=== PATIENT | male | born 1940 | race Caucasian/White ===

== ENCOUNTER 2019-09-25 19:13 | Emergency (ER) | payer MEDICARE, OTHER ==
[2019-09-25 19:27] VITALS: TEMP 97.9
--- NOTE | 2019-09-25 20:01 | ED ---
Altered Mental Status HPI - General Chief Complaint: Altered Mental Status Stated Complaint: Altered mental status Source: patient, family, RN notes reviewed, old records reviewed Mode of arrival: ambulatory Limitations: no limitations - History of Present Illness Initial Comments: There is a 79-year-old male medical history of heart disease coming in with altered mental status family states he's not been acting himself for a few days with significant shortness of breath especially with exertion. No active nausea vomiting or travel history no sick contacts. Patient himself does not feel well. Otherwise no known sick contacts no travel history no recent change in medications admits to shortness of breath without chest pain. No active fevers. MD Complaint: altered mental status, confusion -: days(s) Severity: mild Consistency of Symptoms: waxing and waning Context: history of similar presentation Associated Symptoms: shortness of breath, weakness - Related Data Home Medications Medication Instructions Recorded Confirmed Acetaminophen-Codeine 300-30mg 1 tab PO Q6H PRN 09/25/19 09/25/19 [Tylenol w/codeine #3] Amitriptyline HCl [Elavil] 10 mg PO DAILY 09/25/19 09/25/19 Amitriptyline HCl [Elavil] 30 mg PO HS 09/25/19 09/25/19 Budesonide/Formoterol Fumarate 2 puff INHALATION RT-BID 09/25/19 09/25/19 [Symbicort 160-4.5 Mcg Inhaler] Clopidogrel [Plavix] 75 mg PO DAILY 09/25/19 09/25/19 Escitalopram [Lexapro] 10 mg PO HS 09/25/19 09/25/19 Famotidine 20 mg PO BID 09/25/19 09/25/19 Furosemide [Lasix] 20 mg PO DAILY 09/25/19 09/25/19 Ipratropium/Albuterol Sulfate 1 puff INHALATION RT-QID PRN 09/25/19 09/25/19 [Combivent Respimat Inhaler] Isosorbide Mononitrate ER [Imdur] 30 mg PO DAILY 09/25/19 09/25/19 Metoprolol Succinate [Toprol XL] 25 mg PO BID 09/25/19 09/25/19 Nitroglycerin Sl Tabs [Nitrostat] 0.4 mg SUBLINGUAL Q5M PRN 09/25/19 09/25/19 Rosuvastatin [Crestor] 10 mg PO HS 09/25/19 09/25/19 Allergies Allergy/AdvReac Type Severity Reaction Status Date / Time Sulfa (Sulfonamide Allergy Unknown Verified 09/25/19 20:49 Antibiotics) Review of Systems ROS Statement: Those systems with pertinent positive or pertinent negative responses have been documented in the HPI. ROS Other: All systems not noted in ROS Statement are negative. Past Medical History Past Medical History: Myocardial Infarction ([place]) Additional Past Medical History / Comment(s): cellulitis History of Any Multi-Drug Resistant Organisms: None Reported, C-DIFF Date of last positivie culture/infection: apr 2019 Additional Past Surgical History / Comment(s): Quad Bipass. cardiac stent Past Psychological History: No Psychological Hx Reported Smoking Status: Never smoker Past Alcohol Use History: None Reported Past Drug Use History: None Reported General Exam Limitations: no limitations General appearance: alert, in no apparent distress Head exam: Present: atraumatic, normocephalic, normal inspection Eye exam: Present: normal appearance, PERRL, EOMI. Absent: scleral icterus, conjunctival injection, periorbital swelling ENT exam: Present: normal exam, mucous membranes moist Neck exam: Present: normal inspection. Absent: tenderness, meningismus, lymphadenopathy Respiratory exam: Present: normal lung sounds bilaterally. Absent: respiratory distress, wheezes, rales, rhonchi, stridor Cardiovascular Exam: Present: regular rate, normal rhythm, normal heart sounds. Absent: systolic murmur, diastolic murmur, rubs, gallop, clicks GI/Abdominal exam: Present: soft, normal bowel sounds. Absent: distended, tenderness, guarding, rebound, rigid Extremities exam: Present: normal inspection, full ROM, normal capillary refill. Absent: tenderness, pedal edema, joint swelling, calf tenderness Back exam: Present: normal inspection Neurological exam: Present: alert, oriented X3, CN II-XII intact Psychiatric exam: Present: normal affect, normal mood Skin exam: Present: warm, dry, intact, normal color. Absent: rash Course Vital Signs 09/25/19 09/25/19 09/26/19 19:22 22:00 00:02 Temperature 97.9 F Pulse Rate 83 81 85 Respiratory 20 18 18 Rate Blood Pressure 148/94 155/110 151/106 O2 Sat by Pulse 96 98 Oximetry - Reevaluation(s) Reevaluation #1: 09/25/19 21:01 Medical record is reviewed Reevaluation #2: 09/26/19 00:19 spoke with family at length were agreeable for transfer aware results questions are answered - Consultations Consultation #1: Spoke with Mariela Chávez who are agreeable to transfer Medical Decision Making - Medical Decision Making 79 male with altered mental status positive computed tomography scan findings, patient be transferred for neurosurgical evaluation at [facility] - Lab Data Result diagrams: 09/25/19 20:29 09/25/19 20:29 Lab Results 09/25/19 09/25/19 09/25/19 Range/Units 20:29 20:29 20:29 WBC 8.8 (3.8-10.6) k/uL RBC 4.54 (4.30-5.90) m/uL Hgb 12.1 L (13.0-17.5) gm/dL Hct 39.2 (39.0-53.0) % MCV 86.4 (80.0-100.0) fL MCH 26.8 (25.0-35.0) pg MCHC 31.0 (31.0-37.0) g/dL RDW 15.3 (11.5-15.5) % Plt Count 204 (150-450) k/uL Neutrophils % (Manual) 73 % Band Neutrophils % 1 % Lymphocytes % (Manual) 26 % Neutrophils # (Manual) 6.50 (1.3-7.7) k/uL Lymphocytes # (Manual) 2.29 (1.0-4.8) k/uL Nucleated RBCs 0 (0-0) /100 WBC Manual Slide Review Performed Hypochromasia Moderate Poikilocytosis (manual Present PT 13.0 H (9.0-12.0) sec INR 1.3 H (<1.2) APTT 23.1 (22.0-30.0) sec Sodium 138 (137-145) mmol/L Potassium 4.9 (3.5-5.1) mmol/L Chloride 105 (98-107) mmol/L Carbon Dioxide 23 (22-30) mmol/L Anion Gap 10 mmol/L BUN 33 H (9-20) mg/dL Creatinine 0.95 (0.66-1.25) mg/dL Est GFR (CKD-EPI)AfAm 88 (>60 ml/min/1.73 sqM) Est GFR (CKD-EPI)NonAf 76 (>60 ml/min/1.73 sqM) Glucose 130 H (74-99) mg/dL Calcium 9.4 (8.4-10.2) mg/dL Phosphorus 3.8 (2.5-4.5) mg/dL Magnesium 1.9 (1.6-2.3) mg/dL Total Bilirubin 1.9 H (0.2-1.3) mg/dL AST 51 (17-59) U/L ALT 43 (4-49) U/L Alkaline Phosphatase 109 (38-126) U/L Ammonia (<30) umol/L Creatine Kinase 65 (55-170) U/L Troponin I (0.000-0.034) ng/mL Total Protein 6.4 (6.3-8.2) g/dL Albumin 3.8 (3.5-5.0) g/dL Urine Color Urine Appearance (Clear) Urine pH (5.0-8.0) Ur Specific Rudy (1.001-1.035) Urine Protein (Negative) Urine Glucose (UA) (Negative) Urine Ketones (Negative) Urine Blood (Negative) Urine Nitrite (Negative) Urine Bilirubin (Negative) Urine Urobilinogen (<2.0) mg/dL Ur Leukocyte Esterase (Negative) Urine RBC (0-5) /hpf Urine WBC (0-5) /hpf Ur Squamous Epith Cells (0-4) /hpf Urine Mucus (None) /hpf Urine Opiates Screen (NotDetected) Ur Oxycodone Screen (NotDetected) Urine Methadone Screen (NotDetected) Ur Propoxyphene Screen (NotDetected) Ur Barbiturates Screen (NotDetected) U Tricyclic Antidepress (NotDetected) Ur Phencyclidine Scrn (NotDetected) Ur Amphetamines Screen (NotDetected) U Methamphetamines Scrn (NotDetected) U Benzodiazepines Scrn (NotDetected) Urine Cocaine Screen (NotDetected) U Marijuana (THC) Screen (NotDetected) 09/25/19 09/25/19 09/25/19 Range/Units 20:29 20:29 21:29 WBC (3.8-10.6) k/uL RBC (4.30-5.90) m/uL Hgb (13.0-17.5) gm/dL Hct (39.0-53.0) % MCV (80.0-100.0) fL MCH (25.0-35.0) pg MCHC (31.0-37.0) g/dL RDW (11.5-15.5) % Plt Count (150-450) k/uL Neutrophils % (Manual) % Band Neutrophils % % Lymphocytes % (Manual) % Neutrophils # (Manual) (1.3-7.7) k/uL Lymphocytes # (Manual) (1.0-4.8) k/uL Nucleated RBCs (0-0) /100 WBC Manual Slide Review Hypochromasia Poikilocytosis (manual PT (9.0-12.0) sec INR (<1.2) APTT (22.0-30.0) sec Sodium (137-145) mmol/L Potassium (3.5-5.1) mmol/L Chloride (98-107) mmol/L Carbon Dioxide (22-30) mmol/L Anion Gap mmol/L BUN (9-20) mg/dL Creatinine (0.66-1.25) mg/dL Est GFR (CKD-EPI)AfAm (>60 ml/min/1.73 sqM) Est GFR (CKD-EPI)NonAf (>60 ml/min/1.73 sqM) Glucose (74-99) mg/dL Calcium (8.4-10.2) mg/dL Phosphorus (2.5-4.5) mg/dL Magnesium (1.6-2.3) mg/dL Total Bilirubin (0.2-1.3) mg/dL AST (17-59) U/L ALT (4-49) U/L Alkaline Phosphatase (38-126) U/L Ammonia <9 (<30) umol/L Creatine Kinase (55-170) U/L Troponin I <0.012 (0.000-0.034) ng/mL Total Protein (6.3-8.2) g/dL Albumin (3.5-5.0) g/dL Urine Color Yellow Urine Appearance Clear (Clear) Urine pH 5.5 (5.0-8.0) Ur Specific Rudy 1.025 (1.001-1.035) Urine Protein Trace H (Negative) Urine Glucose (UA) Negative (Negative) Urine Ketones 1+ H (Negative) Urine Blood Small H (Negative) Urine Nitrite Negative (Negative) Urine Bilirubin Negative (Negative) Urine Urobilinogen 2.0 (<2.0) mg/dL Ur Leukocyte Esterase Negative (Negative) Urine RBC 1 (0-5) /hpf Urine WBC 2 (0-5) /hpf Ur Squamous Epith Cells <1 (0-4) /hpf Urine Mucus Few H (None) /hpf Urine Opiates Screen Detected H (NotDetected) Ur Oxycodone Screen Not Detected (NotDetected) Urine Methadone Screen Not Detected (NotDetected) Ur Propoxyphene Screen Not Detected (NotDetected) Ur Barbiturates Screen Not Detected (NotDetected) U Tricyclic Antidepress Detected H (NotDetected) Ur Phencyclidine Scrn Not Detected (NotDetected) Ur Amphetamines Screen Not Detected (NotDetected) U Methamphetamines Scrn Detected H (NotDetected) U Benzodiazepines Scrn Detected H (NotDetected) Urine Cocaine Screen Not Detected (NotDetected) U Marijuana (THC) Screen Not Detected (NotDetected) - EKG Data -: EKG Interpreted by Me (EKG shows flutter of 82, QRS 90, QTc 474) - Radiology Data Radiology results: report reviewed (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 Specs Out of Hospital Transfer - Requested Specifics: Other Emergency Center ([facility]
[2019-09-25] MEDS ORDERED: SODIUM CHLORIDE 0.9% 1,000 ML IV STA (20:07)
[2019-09-25 20:51] LABS: HCT 39.2 % (39.0-53.0); HGB 12.1 gm/dL (13.0-17.5); Hypochromasia Moderate; MCH 26.8 pg (25.0-35.0); MCV 86.4 fL (80.0-100.0); Mean Platelet Volume 7.6; Platelet Count 204 k/uL (150-450); RBC 4.54 m/uL (4.30-5.90); RDW 15.3 % (11.5-15.5); WBC 8.8 k/uL (3.8-10.6)
[2019-09-25 20:56] LABS: INR 1.3 (<1.2); Partial Thromboplastin Time 23.1 sec (22.0-30.0)
--- NOTE | 2019-09-25 21:06 | CT ---
EXAMINATION TYPE: CT brain wo con DATE OF EXAM: 09/25/2019 COMPARISON: None HISTORY: Altered mental status. CT DLP: 1122.4 mGycm Automated exposure control for dose reduction was used. Ventricles have normal size. There is no midline shift. There is no sign of intracranial hemorrhage. There is no evidence of a cortical infarct. There is expansion of the sella turcica. There is mass in the central and right side of the sella tur cica extending up to the optic chiasm. Mass measures 1.7 x 2.3 x 2.4 cm. There appears to be some thi nning of the bone on the floor of the sella turcica. 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 No calcifications s een. There is impingement on the optic chiasm.
--- NOTE | 2019-09-25 21:08 | XR ---
EXAMINATION TYPE: XR chest 2V DATE OF EXAM: 09/25/2019 COMPARISON: NONE HISTORY: Slurred speech TECHNIQUE: FINDINGS: Heart appears enlarged. There is no heart failure. There are sternal wires. There are chest leads. Costophrenic angles are clear. There is some osteopenia. IMPRESSION: No active cardiopulmonary disease. Cardiomegaly.
[2019-09-25 21:09] LABS: Albumin 3.8 g/dL (3.5-5.0); Calcium 9.4 mg/dL (8.4-10.2); Magnesium 1.9 mg/dL (1.6-2.3); Phosphorus 3.8 mg/dL (2.5-4.5); Potassium 4.9 mmol/L (3.5-5.1); Total Bilirubin 1.9 mg/dL (0.2-1.3); Total Protein 6.4 g/dL (6.3-8.2)
[2019-09-25 21:40] LABS: Appearance,Urine Clear (Clear); Bilirubin,Urine Negative (Negative); Blood,Urine Small (Negative); Color,Urine Yellow; Glucose,Urine (UA) Negative (Negative); Ketones,Urine 1+ (Negative); Leukocyte Esterase,Urine Negative (Negative); Mucus,Urine Few /hpf; Nitrite,Urine Negative (Negative); PH, Urine 5.5 (5.0-8.0); Protein,Urine Trace (Negative); RBC,Urine 1 /hpf (0-5); Specific Gravity,Urine 1.025 (1.001-1.035); Squamous Epithelial Cell,Urine <1 /hpf (0-4); WBC,Urine 2 /hpf (0-5)
[2019-09-25 21:47] LABS: Band Neutrophils % 1 %; Lymphocytes # (M) 2.29 k/uL (1.0-4.8); Neutrophils % (M) 73 %; Nucleated Red Blood Cells 0 /100 WBC (0-0); Total Cells Counted 100
[2019-09-25 21:48] LABS: Poikilocytosis (M) Present
[2019-09-25 21:55] LABS: Amphetamine Screen,Urine Not Detected (NotDetected); Barbiturate Screen,Urine Not Detected (NotDetected); Benzodiazepines Screen,Urine Detected (NotDetected); Cocaine Screen,Urine Not Detected (NotDetected); Methadone Screen, Urine Not Detected (NotDetected); Opiate Screen,Urine Detected (NotDetected); Oxycodone Screen, Urine Not Detected (NotDetected); Phencyclidine Screen,Urine Not Detected (NotDetected); Tricyclic Antidepressant,Urine Detected (NotDetected); Urn Cannabinoid Scrn Not Detected (NotDetected)
[2019-09-25 22:05] VITALS: RESP 18
[2019-09-25] MEDS ORDERED: METOPROLOL TARTRATE 25 MG TAB PO STA (23:16)
[2019-09-25] MEDS ORDERED: Acetaminophen-Codeine 300-30mg TAB PO STA (23:18)
[2019-09-25] MEDS ORDERED: AMITRIPTYLINE HCL 10 MG TAB PO ONE (23:30)
[2019-09-25] MEDS ORDERED: ESCITALOPRAM 10 MG TAB PO ONE (23:30)
[2019-09-26 00:03] VITALS: BP 151/106; PULSE 85
[2019-09-26] MEDS ORDERED: AMITRIPTYLINE HCL 10 MG TAB PO STA (00:04)
== END 2019-09-26 01:00 | disposition other institution (70) ==
LOC: EC 19:13
DX: R41.82 Altered mental status, unspecified (principal); F41.9 Anxiety disorder, unspecified; I51.9 Heart disease, unspecified; D49.6 Neoplasm of unspecified behavior of brain; I25.2 Old myocardial infarction; Z79.899 Other long term (current) drug therapy; Z95.5 Presence of coronary angioplasty implant and graft; Z88.2 Allergy status to sulfonamides
CPT/HCPCS: 36415; 70450; 71046; 80053; 80306; 81001; 82140; 82550; 83735; 84100; 84484; 85025; 85610; 85730; 93005; 96360; 96361; 99285